=== PATIENT | female | born 1995 | race Caucasian/White ===

== ENCOUNTER 2018-04-06 16:26 | Emergency (ER) | payer OTHER ==
[~2018-04-06] VITALS: Ht 160 cm; Wt 51.7 kg
[~2018-04-06 16:26] MED LIST: AMOXIL875 MG PO; BACTRIM,SEPT1 TABLET PO; FLONASE16 G1 BOTH NARES; IBUPROFEN100 M2 PO; KEFLEX500 MG PO; MUCINEX D ER T1 EACH PO; NAPROSYN500 MG PO; NOHOMEMEDS; PHENAZOPYRIDIN200 MG PO; PREDNISONE50 MG PO; PROMETHAZINE HC25 M1 PO; PYRIDIUM200 MG PO; ZITHROMAX250 MG PO
[2018-04-06] MEDS ORDERED: FLEXERIL10 MG PO (17:41)
[2018-04-06] MEDS ORDERED: ULTRAM50 MG PO (17:41)
[2018-04-06 18:20] VITALS: BP 121/75
== END 2018-04-06 18:21 | disposition home or self-care (01) ==
LOC: EME 16:26
DX: S22.32XA Fracture of one rib, left side, initial encounter for closed fracture (principal); W22.8XXA Striking against or struck by other objects, initial encounter; Y92.512 Supermarket, store or market as the place of occurrence of the external cause; Y99.0 Civilian activity done for income or pay
CPT/HCPCS: 71100; 99281; 99284